=== PATIENT | female | born 1990 | race Caucasian/White ===

== ENCOUNTER 2016-08-28 10:12 | Emergency (ER) | payer OTHER ==
[2016-08-28 11:52] LABS: HEMOGLOBIN 12.6 gm/dl (12.3-15.3)
== END 2016-08-28 13:18 | disposition home or self-care (01) ==
LOC: ER1 10:12
PROVIDERS: Physician Assistant
DX: N93.8 Other specified abnormal uterine and vaginal bleeding (principal)
CPT/HCPCS: 36415; 81001; 84703; 85014; 85018; 99284

== ENCOUNTER 2020-12-18 11:58 | Emergency (ER) | payer OTHER ==
[~2020-12-18 11:58] MED LIST: PRENATAL VITAM1 EAC5 PO; SYNTHROID75 MCG PO
[2020-12-18 13:48] LABS: HEMOGLOBIN 10.9 gm/dl (12.3-15.3); RED BLOOD COUNT 4.81 M/UL (4.00-5.10); WHITE BLOOD COUNT 6.4 K/UL (4.5-11.0)
[2020-12-18 14:02] LABS: BUN/CREATININE RATIO 19 (0-10)
== END 2020-12-18 16:50 | disposition home or self-care (01) ==
LOC: ER1 11:58
PROVIDERS: Emergency Medicine
DX: R55 Syncope and collapse (principal); F32.9 Major depressive disorder, single episode, unspecified
CPT/HCPCS: 70450; 71045; 80053; 81001; 82550; 82553; 83605; 83690; 84484; 84703; 85025; 87040; 93005; 96374; 99284; J2405; Q9967

== ENCOUNTER 2021-01-13 16:54 | Emergency (ER) | payer OTHER ==
[2021-01-13 17:43] LABS: HEMOGLOBIN 11.3 gm/dl (12.3-15.3); RED BLOOD COUNT 4.9 M/UL (4.00-5.10); WHITE BLOOD COUNT 6.2 K/UL (4.5-11.0)
[2021-01-13 18:05] LABS: BUN/CREATININE RATIO 20 (0-10)
[2021-01-13] MEDS ORDERED: ZOFRAN4 MG PO (19:39)
== END 2021-01-13 19:49 | disposition home or self-care (01) ==
LOC: ER1 16:54
PROVIDERS: Preventive Medicine Occupational Medicine
DX: N80.9 Endometriosis, unspecified (principal)
CPT/HCPCS: 80053; 80307; 81001; 82009; 83690; 84703; 85025; 85652; 86140; 87086; 96374; 99284; J2405; J7030

== ENCOUNTER 2021-01-19 19:17 | Emergency (ER) | payer OTHER ==
[~2021-01-19 19:17] MED LIST changes: +ZOFRAN4 MG PO
== END 2021-01-19 20:26 | disposition left against medical advice (07) ==
LOC: ER1 19:17
DX: Z53.21 Procedure and treatment not carried out due to patient leaving prior to being seen by health care provider (principal)

== ENCOUNTER 2021-10-17 09:05 | Emergency (ER) | payer OTHER ==
[2021-10-17] MEDS ORDERED: TRAMADOL HCL50 MG PO (09:26)
== END 2021-10-17 09:39 | disposition home or self-care (01) ==
LOC: ER1 09:05
DX: K02.9 Dental caries, unspecified (principal)
CPT/HCPCS: 99282

== ENCOUNTER 2021-10-17 19:54 | Emergency (ER) | payer OTHER ==
[~2021-10-17 19:54] MED LIST changes: +TRAMADOL HCL50 MG PO
[2021-10-17 20:27] LABS: HEMOGLOBIN 11.2 gm/dl (12.3-15.3); RED BLOOD COUNT 4.52 M/UL (4.00-5.10); WHITE BLOOD COUNT 8.3 K/UL (4.5-11.0)
[2021-10-17 20:47] LABS: BUN/CREATININE RATIO 21 (0-10)
== END 2021-10-18 02:29 | disposition home or self-care (01) ==
LOC: ER1 19:54
PROVIDERS: Physician Assistant Medical
DX: K03.81 Cracked tooth (principal); R55 Syncope and collapse; F17.210 Nicotine dependence, cigarettes, uncomplicated
CPT/HCPCS: 80053; 82550; 82553; 84484; 85025; 93005; 96372; 99283; J1885

== ENCOUNTER 2021-11-05 08:34 | Emergency (ER) | payer OTHER ==
[2021-11-05] MEDS ORDERED: HYDROCODON-ACE1 EAC4 PO (09:09)
[2021-11-05] MEDS ORDERED: AMOXICILLIN500 MG PO (09:09)
== END 2021-11-05 09:38 | disposition home or self-care (01) ==
LOC: ER1 08:34
DX: K08.89 Other specified disorders of teeth and supporting structures (principal); F17.200 Nicotine dependence, unspecified, uncomplicated
CPT/HCPCS: 99282